=== PATIENT | male | born 1990 | race Caucasian/White ===

== ENCOUNTER 2019-10-18 13:19 | Emergency (ER) | payer BC ==
[2019-10-18 14:44] VITALS: BP 113/62
--- NOTE | 2019-10-18 14:57 | UC ---
Lower Extremity/Ankle HPI - HPI Summary HPI Summary: Pt presents with c/o atraumatic left foot pain. Pt has had "trouble with his feet before" and states that he stands for long periods of time on concrete floors. - History of Current Complaint Chief Complaint: UCLowerExtremity Stated Complaint: LEFT FOOT INJURY Time Seen by Provider: 10/18/19 14:15 Hx Obtained From: Patient Onset/Duration: Gradual Onset, Lasting Days, Still Present Severity Initially: Mild Severity Currently: Mild Pain Intensity: 4 Aggravating Factor(s): Standing, Ambulation Alleviating Factor(s): Rest, Elevation Able to Bear Weight: Yes - Risk Factors Gout Risk Factors: Male DVT Risk Factors: Negative Septic Arthritis Risk Factor: Negative - Allergies/Home Medications Allergies/Adverse Reactions: Allergies Allergy/AdvReac Type Severity Reaction Status Date / Time No Known Allergies Allergy Verified 10/18/19 14:44 PMH/Surg Hx/FS Hx/Imm Hx Previously Healthy: Yes - Surgical History Surgical History: None - Family History Known Family History: Positive: Cardiac Disease - Social History Occupation: Employed Full-time Lives: With Family Alcohol Use: Weekly Alcohol Amount: 10 beers Substance Use Type: Marijuana Smoking Status (MU): Smoker, Current Status Unknown Have You Smoked in the Last Year: Yes - marijuana - Immunization History Vaccination Up to Date: No Review of Systems All Other Systems Reviewed And Are Negative: Yes Constitutional: Positive: Negative Skin: Positive: Negative Eyes: Positive: Negative ENT: Positive: Negative Respiratory: Positive: Negative Cardiovascular: Positive: Negative Gastrointestinal: Positive: Negative Genitourinary: Positive: Negative Motor: Positive: Negative Neurovascular: Positive: Negative Musculoskeletal: Positive: Arthralgia - foot, Myalgia Neurological: Positive: Negative Psychological: Positive: Negative Is Patient Immunocompromised?: No Physical Exam Triage Information Reviewed: Yes Appearance: Well-Appearing Vital Signs: Initial Vital Signs Temp 97.9 F 10/18/19 14:41 Pulse 80 10/18/19 14:41 Resp 16 10/18/19 14:41 BP 113/62 10/18/19 14:41 Pulse Ox 99 10/18/19 14:41 Vital Signs Reviewed: Yes Eye Exam: Normal ENT: Positive: Hearing grossly normal Dental Exam: Normal Respiratory: Positive: No respiratory distress Musculoskeletal Exam: Normal Musculoskeletal: Positive: Edema @ - slight edema, non pitting, left foot Neurological Exam: Normal Psychological Exam: Normal Skin Exam: Normal Diagnostics - Radiology No standard instances Radiology Interpretation Completed By: ED Physician - unable to see xrays as internet is down. Lower Extremity Course/Dx - Differential Dx/Diagnosis Differential Diagnosis/HQI/PQRI: Contusion, Fracture (Closed), Sprain, Strain, Tendonitis Provider Diagnosis: Left foot pain, Overuse injury Discharge ED - Sign-Out/Discharge Documenting (check all that apply): Patient Departure All imaging exams completed and their final reports reviewed: No - Discharge Plan Condition: Stable Disposition: HOME Prescriptions: predniSONE 10 mg TAB [Deltasone 10 MG TAB*] 30 mg PO DAILY #12 tab Patient Education Materials: Tendinitis (ED), Arthralgia (ED) Referrals: Fadia Membreno MD [Primary Care Provider] - Wilson Mata MD [Medical Doctor] - If Needed Wendy Rodriguez MD [Medical Doctor] - If Needed - Billing Disposition and Condition Condition: STABLE Disposition: Home
--- NOTE | 2019-10-18 15:50 | UC ---
- Progress Note Progress Note: no change - Results/Orders Results/Orders: xray negative Course/Dx - Diagnoses Provider Diagnoses: Left foot pain, Overuse injury Discharge ED - Sign-Out/Discharge Documenting (check all that apply): Post-Discharge Follow Up All imaging exams completed and their final reports reviewed: Yes - Discharge Plan Condition: Stable Disposition: HOME Prescriptions: predniSONE 10 mg TAB [Deltasone 10 MG TAB*] 30 mg PO DAILY #12 tab Patient Education Materials: Arthralgia (ED), Tendinitis (ED) Referrals: Wilson Mata MD [Medical Doctor] - If Needed Wendy Rodriguez MD [Medical Doctor] - If Needed Fadia Membreno MD [Primary Care Provider] - - Billing Disposition and Condition Condition: STABLE Disposition: Home
== END 2019-10-18 15:25 | disposition home or self-care (01) ==
LOC: UCCORT 13:19
DX: M25.572 Pain in left ankle and joints of left foot (principal); M70.872 Other soft tissue disorders related to use, overuse and pressure, left ankle and foot
CPT/HCPCS: 99203; G0463